=== PATIENT | male | born 1990 | race Caucasian/White ===

== ENCOUNTER 2018-03-09 11:30 | Inpatient (IN) ==
[2018-03-09] MEDS ORDERED: ONDANSETRON HCL/PF 2 MG/ML VIAL IV ONE (11:55)
[2018-03-09] MEDS ORDERED: NORMAL SALINE 1,000 ML IV ONE ×2 (11:55→15:06)
[2018-03-09] MEDS ORDERED: ONDANSETRON HCL/PF 2 MG/ML VIAL ONE (11:57)
--- NOTE | 2018-03-09 12:09 | ERNOTE ---
Medical Problem HPI - Narrative Date of Service: 03/09/18 - General Chief Complaint: Diabetes Related Problem Time Seen by Provider: 03/09/18 11:44 Source: patient Exam Limitations: no limitations - Immun/Allergies/Home Medications Immunizations: IMMUNIZATION HX Immunizations Up to Date Yes Allergies/Adverse Reactions: Allergies latex Allergy (Verified 03/09/18 14:42) Home Medications: HOME MEDICATIONS Insulin Aspart [Novolog] 17 units SC 1700 03/09/18 [Last Taken Unknown] Insulin Aspart [Novolog] 20 units SC 1200 03/09/18 [Last Taken Unknown] Insulin Aspart [Novolog] 28 units SC 0800 03/09/18 [Last Taken Unknown] Insulin Aspart [Novolog] See Protocol SC AC PRN 03/09/18 [Last Taken Unknown] Insulin Glargine,Hum.rec.anlog [Lantus] 24 units SC 2100 03/09/18 [Last Taken Unknown] Lisinopril [Zestril] 2.5 mg PO 0800 03/09/18 [Last Taken Unknown] Omeprazole 40 mg PO 0800 03/09/18 [Last Taken Unknown] Sertraline HCl 75 mg PO 0800 03/09/18 [Last Taken Unknown] traZODone HCL [Trazodone HCl] 50 mg PO HS PRN 03/09/18 [Last Taken Unknown] - History of Present History Narrative: Pt. comes in by PV with c/o nausea, vomiting, intermittent abd pain, and bg in the 400s this morning. Pt. denies any recent illness, fever, SOB, CP, diarrhea , alleviating or aggravating factors. Pt. states that his blood sugars were fine yesterday and he was feeling well. Pt. denies any prehospital treatment. Timing: getting worse Severity: moderate Modifying Factors - (Improves): Present: other - denies Modifying Factors - (Worsens): Present: other - denies Review of Systems - Review of Systems Constitutional: Present: diaphoresis, weakness, fatigue, malaise. Absent: fever , chills EYE: Present: no symptoms reported ENT: Present: no symptoms reported Respiratory: Present: no symptoms reported. Absent: shortness of breath, cough , wheezing Cardiology: Present: no symptoms reported. Absent: chest pain, palpitations, edema Gastrointestinal/Abdominal: Present: nausea, vomiting, abdominal pain - intermittent. Absent: diarrhea Genitourinary: Present: no symptoms reported. Absent: frequency, pain, dysuria , hematuria, decreased urinary output Musculoskeletal: Present: no symptoms reported. Absent: back pain, neck pain, joint pain Skin: Present: no symptoms reported Neurological: Present: no symptoms reported. Absent: headache, dizziness/light- headedness, numbness, tingling All Other Systems: All systems neg except as marked Medical History (Last Reviewed 03/09/18 @ 12:06 by ANA Edwards ) Asthma Mayes disease, bilateral DKA (diabetic ketoacidoses) Type 1 diabetes mellitus Surgical History: Surgical History (Last Updated 03/09/18 @ 14:38 by Lindy Sawyer RN) Leg fracture, left Leg fracture, right Family History: Family History (Last Updated 03/09/18 @ 14:41 by Lindy Sawyer RN) Mother Anemia Grandmother Hypertension Grandfather Dementia Sister Hyperthyroidism Diabetes Social History: Preferred Language Azeri Do you have any denominational or No cultural preference? Smoking Status Current every day smoker Alcohol Use none Drug Use none Physical Exam - Physical Exam General Appearance: Present: wd/wn, alert, no apparent distress Head Exam: Present: normal inspection, no evidence of injury, no tenderness w palpation Eye Exam: Normal inspection: bilateral Ears, Nose, Throat: Present: normal ENT inspection, normal pharynx. Absent: nasal congestion, sinus pain/drainage, pharyngeal erythema, pharyngeal swelling Neck: Present: normal inspection, nontender, supple, full range of motion. Absent: lymphadenopathy (R), lymphadenopathy (L) Respiratory: Present: no respiratory distress, normal breath sounds, no accessory muscle use, chest nontender, accessory muscle use. Absent: crackles, rales, rhonchi, wheezing Cardiovascular/Chest: Present: regular rate, rhythm, no murmur, normal peripheral pulses Gastrointestinal/Abdominal: Present: normal bowel sounds, nontender, nondistended, soft, no organomegaly Back Exam: Present: normal inspection Extremity Exam: Present: normal range of motion, other - erythema, edema, and warmth R hand 1 cm surrounding a 2mm puncture wound with dried purulent scabbed drainage. Neurological Exam: Present: alert, oriented, normal mood/affect, no motor/ sensory deficits, director of strategic initiatives II-XII nml as tested, normal cerebellar test Skin Exam: Present: warm/dry, pallor. Absent: skin rash ED Progress - Date and Time Seen: Date and Time: 03/09/18 12:[address] Harden and she accepts pt. for admission and request CXR and blood cultures - Vital Signs Patient's Vital Signs:: I have reviewed the patient's vital signs. Vital Signs: Vital Signs 03/09/18 11:34 Temperature 36.6 C Pulse Rate 95 Respiratory Rate 22 H Blood Pressure 119/68 O2 Sat by Pulse Oximetry 96 - X-Ray X-Ray #1 X-Ray: chest Interpretation: Reviewed by me X-ray Comments: no obvious acute CP process - Progress/Reassessment Chief Complaint: Diabetes Related Problem Progress:: Unchanged Departure Clinical Impression: DKA (diabetic ketoacidoses) Qualifiers: Diabetes mellitus type: type 1 Diabetes mellitus complication detail: without coma Qualified Code(s): E10.10 - Type 1 diabetes mellitus with ketoacidosis without coma - Departure Disposition: Still a patient Condition: Critical Critical Care Time - Critical Care Critical Time Spent:: Yes Total time (mins) Spent:: 45 Critical Care: Pt. critically ill DKA with severe acidosis and extremely elevated Blood sugar. Spent time with pt. stabilizing condition, consulting other providers and education of pt.
[2018-03-09 12:11] LABS: Hemoglobin 13.1 gm/dL (13.5-18.0); Mean Cell Volume 84.2 fl (78-100); Mean Corpuscular Hemoglobin 26.3 pg (27-31); Mean Corpuscular Hgb Conc 31.2 g/dl (32-36); Neutrophil # 9.9 K/mm3 (1.3-6.0); Neutrophil % 85.9 % (42-75.0); Platelet Count 207 K/mm3 (150-450); Red Blood Count 4.99 M/mm3 (4.7-6.0); Red Cell Distribution Width 14.7 % (11.5-14.0); White Blood Count 11.5 K/mm3 (4.0-10.5)
[2018-03-09 12:14] LABS: Venous Blood Gas HCO3 13.1 mmol/L (22.0-29.0)
[2018-03-09 12:19] LABS: Venous Blood Gas pH 7.15 (7.32-7.43)
[2018-03-09 12:25] LABS: ALT 31 U/L (19-67); AST 23 U/L (0-48); Albumin * 4.1 gm/dl (3.4-5.0); Alkaline Phosphatase * 161 U/L (50-170); Amylase * 26 U/L (25-115); Anion Gap 27.2 mmol/L (6.8-13.8); BUN/Creatinine Ratio 18.8 (9.0-21.6); Bilirubin, Total 0.7 mg/dL (0.0-1.1); Blood Urea Nitrogen 32 mg/dL (6-23); Ca. Corrected For Albumin 8.6 mg/dL (8.4-10.2); Carbon Dioxide 16.1 mmol/L (24-32.6); Chloride 90 mmol/L (97-106); Lipase 98 U/L (73-393); Potassium 5.3 mmol/L (3.4-4.6); Sodium 128 mmol/L (132-142); Total Protein 7.8 gm/dL (6.2-8.2)
[2018-03-09 12:29] LABS: Glucose * 673 mg/dL (70-110)
[2018-03-09] MEDS ORDERED: INSULIN REGULAR, HUMAN 100 UNITS/ML VIAL IV ONE (12:31)
[2018-03-09] MEDS ORDERED: INSULIN REGULAR, HUMAN 100 UNITS in NORMAL SALINE 100 ML IV PRN ×2 (12:31)
[2018-03-09 12:33] LABS: Hemoglobin A1C 10.2 % (4.00-6.0)
[2018-03-09] MEDS ORDERED: POTASSIUM CHLORIDE 20 MEQ in DEXTROSE 5%-0.5 NORMAL SALINE 990 ML IV SCH (12:45)
[2018-03-09] MEDS ORDERED: POTASSIUM CHLORIDE 10 MEQ in NORMAL SALINE 1,000 ML IV SCH (12:45)
[2018-03-09 13:01] LABS: Anion Gap 26.4 mmol/L (6.8-13.8); Carbon Dioxide 16.1 mmol/L (24-32.6); Potassium 5.5 mmol/L (3.4-4.6)
[2018-03-09 13:41] LABS: Urine Bilirubin Negative (NEGATIVE); Urine Blood 250 /ul (NEGATIVE); Urine Ketone Large mg/dL (NEGATIVE); Urine Nitrite Negative (NEGATIVE); Urine Protein Negative (NEGATIVE); Urine Specific Gravity 1.015 SP.GR. (1.005-1.030); Urine Urobilinogen Normal (NORMAL); Urine pH 5.5 pH (5.0-7.0)
[2018-03-09 13:46] LABS: Urine Appearance Slightly Cloudy (CLEAR); Urine Bacteria None Seen; Urine Color Yellow; Urine RBC 0-5 /hpf (0-5); Urine WBC None Seen /hpf (0-5)
[2018-03-09 14:58] LABS: Anion Gap 28.1 mmol/L (6.8-13.8); Carbon Dioxide 13.5 mmol/L (24-32.6); Potassium 4.6 mmol/L (3.4-4.6)
[2018-03-09] MEDS: NORMAL SALINE 1,000 ML IV PRN ×2 (16:10→23:07)
--- NOTE | 2018-03-09 16:49 | HP ---
Chief Complaint - Chief Complaint Date of Service: 03/09/18 Time of Service: 16:25 Chief Complaint: vomiting, dka History of Present Illness: Patient is cognitively impaired, and lives at a long-term in [place]. No other family members present at the time of my interview. He presented to the ED vomiting, and diaphoretic, and was found to be in DKA. He has a small skin wound on his right hand. He also reports having chronic diarrhea. He denies cough, chest pain, or shortness of breath. He states he has been in DKA previously. His DM is managed with lantus and novolog. Medical History (Last Reviewed 03/09/18 @ 12:06 by ANA Edwards ) Asthma Bartow disease, bilateral DKA (diabetic ketoacidoses) Type 1 diabetes mellitus Surgical History: Surgical History (Last Updated 03/09/18 @ 14:38 by Lindy Sawyer RN) Leg fracture, left Leg fracture, right Family History: Family History (Last Updated 03/09/18 @ 14:41 by Lindy Sawyer RN) Mother Anemia Grandmother Hypertension Grandfather Dementia Sister Hyperthyroidism Diabetes Social History: Patient Lives/Resources Insite Utilized Preferred Language Comoran Do you have any presybeterian or No cultural preference? Smoking Status Smoker, status unknown Have you smoked in the past 12 No months Do you dip or chew tobacco No Alcohol Use none Drug Use none Review Of Systems (GEN) - Review of Systems Generalized/Overall Review: Absent: Fever Respiratory: Absent: Cough, Shortness of Breath Cardiac: Absent: Chest Pain, Edema Abdominal: Present: Nausea, Vomiting, Diarrhea Genitourinary: Absent: Dysuria Skin: Present: Lesions Immunizations: IMMUNIZATION HX Immunizations Up to Date Yes Allergies/Adverse Reactions: Allergies Allergy/AdvReac Type Severity Reaction Status Date / Time latex Allergy Verified 03/09/18 14:42 Home Medications: HOME MEDICATIONS Insulin Aspart [Novolog] 17 units SC 1700 03/09/18 [Last Taken Unknown] Insulin Aspart [Novolog] 20 units SC 1200 03/09/18 [Last Taken Unknown] Insulin Aspart [Novolog] 28 units SC 0800 03/09/18 [Last Taken Unknown] Insulin Aspart [Novolog] See Protocol SC AC PRN 03/09/18 [Last Taken Unknown] Insulin Glargine,Hum.rec.anlog [Lantus] 24 units SC 2100 03/09/18 [Last Taken Unknown] Lisinopril [Zestril] 2.5 mg PO 0800 03/09/18 [Last Taken Unknown] Omeprazole 40 mg PO 0800 03/09/18 [Last Taken Unknown] Sertraline HCl 75 mg PO 0800 03/09/18 [Last Taken Unknown] traZODone HCL [Trazodone HCl] 50 mg PO HS PRN 03/09/18 [Last Taken Unknown] Exam - Exam Vital Signs: Vital Signs - Last Taken Temp 36.8 C 03/09/18 16:00 Pulse 94 03/09/18 16:00 Resp 16 03/09/18 16:00 BP 106/55 03/09/18 16:00 Pulse Ox 96 03/09/18 16:00 Constitutional: Present: Well nourished - Patient is somnolent, but answers questions seemingly appropriately, Young, Looks Older than stated age ENT Exam: Present: dry mucous membranes Respiratory: Present: normal breath sounds, no respiratory distress, No wheezing Cardiovascular/Chest: Present: regular rate, rhythm Abdomen: Present: soft, nontender Skin Exam: Present: other - Small 3 mm skin wound with 1.5 cm surrounding erythema. Healing 2 cm wound of left lower anterior leg. Large healed scars of bilateral lower legs. Eye contact: Present: avoids eye contact, decreased rate of speech Diagnostic Studies: Abnormal Lab Results 03/09/18 03/09/18 03/09/18 Range/Units 11:50 11:50 11:50 WBC 11.5 H (4.0-10.5) K/mm3 Hgb 13.1 L (13.5-18.0) gm/dL MCH 26.3 L (27-31) pg MCHC 31.2 L (32-36) g/dl RDW 14.7 H (11.5-14.0) % Neutrophils % 85.9 H (42-75.0) % Lymphocytes % 8.9 L (20-51) % Neutrophils # 9.9 H (1.3-6.0) K/mm3 Lymphocytes # 1.03 L (1.5-3.5) k/mm3 pO2 71.2 H (23.3-35.1) mmHg HCO3 13.1 L (22.0-29.0) mmol/L Total CO2 14.2 L (22.0-26.0) mmol/L Base Excess -14.9 L (-2.0-3.0) mmol/L ABG pH 7.15 L* (7.32-7.43) VBG O2 Saturation 89.5 L (94.0-98.0) % Sodium 128 L (132-142) mmol/L Potassium 5.3 H (3.4-4.6) mmol/L Chloride 90 L (97-106) mmol/L Carbon Dioxide 16.1 L (24-32.6) mmol/L Anion Gap 27.2 H (6.8-13.8) mmol/L BUN 32 H (6-23) mg/dL Creatinine 1.70 H (0.4-1.4) mg/dL Est GFR (Non-Af Amer) 51 L (60-130) mL/min Random Glucose 673 H* (70-110) mg/dL Hemoglobin A1c (4.00-6.0) % Urine Glucose (UA) (NEGATIVE) mg/dL Urine Blood (NEGATIVE) /ul Serum Ketones Positive - 40mg/dl H (NEGATIVE) 03/09/18 03/09/18 03/09/18 Range/Units 11:50 12:53 14:40 WBC (4.0-10.5) K/mm3 Hgb (13.5-18.0) gm/dL MCH (27-31) pg MCHC (32-36) g/dl RDW (11.5-14.0) % Neutrophils % (42-75.0) % Lymphocytes % (20-51) % Neutrophils # (1.3-6.0) K/mm3 Lymphocytes # (1.5-3.5) k/mm3 pO2 (23.3-35.1) mmHg HCO3 (22.0-29.0) mmol/L Total CO2 (22.0-26.0) mmol/L Base Excess (-2.0-3.0) mmol/L ABG pH (7.32-7.43) VBG O2 Saturation (94.0-98.0) % Sodium 130 L (132-142) mmol/L Potassium 5.5 H (3.4-4.6) mmol/L Chloride 93 L (97-106) mmol/L Carbon Dioxide 16.1 L 13.5 L (24-32.6) mmol/L Anion Gap 26.4 H 28.1 H (6.8-13.8) mmol/L BUN (6-23) mg/dL Creatinine (0.4-1.4) mg/dL Est GFR (Non-Af Amer) (60-130) mL/min Random Glucose (70-110) mg/dL Hemoglobin A1c 10.2 H (4.00-6.0) % Urine Glucose (UA) (NEGATIVE) mg/dL Urine Blood (NEGATIVE) /ul Serum Ketones (NEGATIVE) 03/09/18 Range/Units Unknown WBC (4.0-10.5) K/mm3 Hgb (13.5-18.0) gm/dL MCH (27-31) pg MCHC (32-36) g/dl RDW (11.5-14.0) % Neutrophils % (42-75.0) % Lymphocytes % (20-51) % Neutrophils # (1.3-6.0) K/mm3 Lymphocytes # (1.5-3.5) k/mm3 pO2 (23.3-35.1) mmHg HCO3 (22.0-29.0) mmol/L Total CO2 (22.0-26.0) mmol/L Base Excess (-2.0-3.0) mmol/L ABG pH (7.32-7.43) VBG O2 Saturation (94.0-98.0) % Sodium (132-142) mmol/L Potassium (3.4-4.6) mmol/L Chloride (97-106) mmol/L Carbon Dioxide (24-32.6) mmol/L Anion Gap (6.8-13.8) mmol/L BUN (6-23) mg/dL Creatinine (0.4-1.4) mg/dL Est GFR (Non-Af Amer) (60-130) mL/min Random Glucose (70-110) mg/dL Hemoglobin A1c (4.00-6.0) % Urine Glucose (UA) >=1000 H (NEGATIVE) mg/dL Urine Blood 250 H (NEGATIVE) /ul Serum Ketones (NEGATIVE) Laboratory Results WBC 11.5 K/mm3 (4.0-10.5) H 03/09/18 11:50 RBC 4.99 M/mm3 (4.7-6.0) 03/09/18 11:50 Hgb 13.1 gm/dL (13.5-18.0) L 03/09/18 11:50 Hct 42.0 % (42.0-52.0) 03/09/18 11:50 MCV 84.2 fl (78-100) 03/09/18 11:50 MCH 26.3 pg (27-31) L 03/09/18 11:50 MCHC 31.2 g/dl (32-36) L 03/09/18 11:50 RDW 14.7 % (11.5-14.0) H 03/09/18 11:50 Plt Count 207 K/mm3 (150-450) 03/09/18 11:50 MPV 11.0 fl (8-11.3) 03/09/18 11:50 Immature Gran % (Auto) 0.30 % (0.001-0.429) 03/09/18 11:50 Immature Gran # (Auto) 0.03 K/mm3 (0.000-0.0310) 03/09/18 11:50 Neutrophils % 85.9 % (42-75.0) H 03/09/18 11:50 Lymphocytes % 8.9 % (20-51) L 03/09/18 11:50 Monocytes % 4.3 % (0.0-9) 03/09/18 11:50 Eosinophils % 0.3 % (0.0-3.0) 03/09/18 11:50 Basophils % 0.3 % (0.0-1.0) 03/09/18 11:50 Nucleated RBC % 0.0 k/mm3 (0-1) 03/09/18 11:50 Neutrophils # 9.9 K/mm3 (1.3-6.0) H 03/09/18 11:50 Lymphocytes # 1.03 k/mm3 (1.5-3.5) L 03/09/18 11:50 Monocytes # 0.5 k/mm3 (0.0-1.0) 03/09/18 11:50 Eosinophils # 0.0 k/mm3 (0.0-0.7) 03/09/18 11:50 Absolute Basophils 0.0 k/mm3 (0.0-0.1) 03/09/18 11:50 pCO2 38.2 mmHg (35.0-48.0) 03/09/18 11:50 pO2 71.2 mmHg (23.3-35.1) H 03/09/18 11:50 HCO3 13.1 mmol/L (22.0-29.0) L 03/09/18 11:50 Total CO2 14.2 mmol/L (22.0-26.0) L 03/09/18 11:50 Base Excess -14.9 mmol/L (-2.0-3.0) L 03/09/18 11:50 ABG pH 7.15 (7.32-7.43) L* 03/09/18 11:50 VBG O2 Saturation 89.5 % (94.0-98.0) L 03/09/18 11:50 Sodium 136 mmol/L (132-142) 03/09/18 14:40 Plasma Sodium 137 mmol/L (130-142) 03/09/18 11:50 Potassium 4.6 mmol/L (3.4-4.6) 03/09/18 14:40 Chloride 99 mmol/L (97-106) 03/09/18 14:40 Carbon Dioxide 13.5 mmol/L (24-32.6) L 03/09/18 14:40 Anion Gap 28.1 mmol/L (6.8-13.8) H 03/09/18 14:40 BUN 32 mg/dL (6-23) H 03/09/18 11:50 Creatinine 1.70 mg/dL (0.4-1.4) H 03/09/18 11:50 Est GFR (Non-Af Amer) 51 mL/min (60-130) L 03/09/18 11:50 BUN/Creatinine Ratio 18.8 (9.0-21.6) 03/09/18 11:50 Random Glucose 673 mg/dL (70-110) H* 03/09/18 11:50 Mean Blood Glucose 254 mg/dL 03/09/18 11:50 Hemoglobin A1c 10.2 % (4.00-6.0) H 03/09/18 11:50 Calcium 9.0 mg/dL (7.9-10.9) 03/09/18 11:50 Calcium Adj for Albumin 8.6 mg/dL (8.4-10.2) 03/09/18 11:50 Total Bilirubin 0.7 mg/dL (0.0-1.1) 03/09/18 11:50 AST 23 U/L (0-48) 03/09/18 11:50 ALT 31 U/L (19-67) 03/09/18 11:50 Alkaline Phosphatase 161 U/L (50-170) 03/09/18 11:50 Total Protein 7.8 gm/dL (6.2-8.2) 03/09/18 11:50 Albumin 4.1 gm/dl (3.4-5.0) 03/09/18 11:50 Amylase 26 U/L (25-115) 03/09/18 11:50 Lipase 98 U/L (73-393) 03/09/18 11:50 Urine Color Yellow 03/09/18 Unknown Urine Appearance Slightly cloudy (CLEAR) 03/09/18 Unknown Urine pH 5.5 pH (5.0-7.0) 03/09/18 Unknown Ur Specific [place] 1.015 SP.GR. (1.005-1.030) 03/09/18 Unknown Urine Protein Negative mg/dL (NEGATIVE) 03/09/18 Unknown Urine Glucose (UA) >=1000 mg/dL (NEGATIVE) H 03/09/18 Unknown Urine Ketones Large mg/dL (NEGATIVE) 03/09/18 Unknown Urine Blood 250 /ul (NEGATIVE) H 03/09/18 Unknown Urine Nitrate Negative (NEGATIVE) 03/09/18 Unknown Urine Bilirubin Negative mg/dl (NEGATIVE) 03/09/18 Unknown Urine Urobilinogen Normal EU/dl (NORMAL) 03/09/18 Unknown Ur Leukocyte Esterase Negative /ul (NEGATIVE) 03/09/18 Unknown Urine RBC 0-5 /hpf (0-5) 03/09/18 Unknown Urine WBC None seen /hpf (0-5) 03/09/18 Unknown Ur Epithelial Cells Trace /hpf (0-5) 03/09/18 Unknown Urine Bacteria None seen (NONE) 03/09/18 Unknown Urine Culture Comments No culture indicated 03/09/18 Unknown Serum Ketones Positive - 40mg/dl (NEGATIVE) H 03/09/18 11:50 Assessment/Plan - Assessment/Plan (1) DKA (diabetic ketoacidoses) Assessment: Will continue insulin drip and aggressive fluid resuscitation until anion gap closes and CO2 normalizes. Will add D5 to fluids when glucose reaches 250. Will watch potassium levels, and add potassium to his fluids when his level is less than 4.5. If his sodium is greater than 145, will change to 1/2 NS. DKA may be secondary to the small wound on his hand, but not strongly likely. WBC not significantly elevated. Blood cultures pending. If not already done, will also check UA and urinalysis. CXR pending. He is cognitively impaired, and unable to provide detailed history. Problem: Acute Qualifiers: Diabetes mellitus type: type 1 Diabetes mellitus complication detail: without coma Qualified Code(s): E10.10 - Type 1 diabetes mellitus with ketoacidosis without coma (2) Wound of skin Assessment: Possible source of an infection leading to DKA, but the wound is fairly small. He was given Rocephin in the ED, and will continue daily Rocephin while hospitalized. Problem: Acute (3) Bartow disease, bilateral Problem: Acute (4) Cognitive dysfunction Problem: Acute
[2018-03-09] MEDS: DEXTROSE 5%-0.5 NORMAL SALINE 1,000 ML IV PRN (17:09)
[2018-03-09 17:13] LABS: Carbon Dioxide 15.7 mmol/L (24-32.6); Potassium 4.7 mmol/L (3.4-4.6)
[2018-03-09 18:54] LABS: Anion Gap 18.8 mmol/L (6.8-13.8); Carbon Dioxide 16.9 mmol/L (24-32.6); Potassium 4.7 mmol/L (3.4-4.6)
[2018-03-09 21:22] LABS: Anion Gap 13.3 mmol/L (6.8-13.8); Carbon Dioxide 20.2 mmol/L (24-32.6); Potassium 4.5 mmol/L (3.4-4.6)
[2018-03-09 23:27] LABS: Anion Gap 15.7 mmol/L (6.8-13.8); Carbon Dioxide 20.2 mmol/L (24-32.6); Potassium 3.9 mmol/L (3.4-4.6)
[2018-03-10] MEDS: POTASSIUM CHLORIDE IN WATER 100 ML IV SCH ×2 (00:31→01:32)
[2018-03-10] MEDS: DEXTROSE 5%-0.5 NORMAL SALINE 1,000 ML IV PRN ×2 (00:53→09:56)
[2018-03-10 00:55] LABS: Anion Gap 14.3 mmol/L (6.8-13.8); Carbon Dioxide 20.8 mmol/L (24-32.6); Potassium 4.1 mmol/L (3.4-4.6)
[2018-03-10 03:07] LABS: Potassium 4.4 mmol/L (3.4-4.6)
[2018-03-10 03:11] LABS: Anion Gap 13.3 mmol/L (6.8-13.8); Carbon Dioxide 24.1 mmol/L (24-32.6)
[2018-03-10] MEDS ORDERED: traZODone HCL 50 MG TABLET PO PRN (04:34)
[2018-03-10] MEDS ORDERED: INSULIN GLARGINE,HUM.REC.ANLOG 100 UNITS/ML VIAL SC SCH (04:34)
[2018-03-10 05:01] LABS: Potassium 4.1 mmol/L (3.4-4.6)
[2018-03-10 05:05] LABS: Anion Gap 13.4 mmol/L (6.8-13.8); Carbon Dioxide 23.7 mmol/L (24-32.6)
[2018-03-10] MEDS ORDERED: PANTOPRAZOLE SODIUM 40 MG TABLET.EC PO SCH (07:00)
[2018-03-10] MEDS ORDERED: OMEPRAZOLE 20 MG CAPSULE.SA PO SCH (07:00)
[2018-03-10] MEDS: INSULIN ASPART 100 UNITS/ML VIAL SC SCH ×2 (07:17→11:42)
[2018-03-10 07:36] LABS: Anion Gap 14.1 mmol/L (6.8-13.8); Potassium 4.1 mmol/L (3.4-4.6)
[2018-03-10] MEDS ORDERED: LISINOPRIL 2.5 MG TABLET PO SCH (08:00)
[2018-03-10] MEDS ORDERED: SULFAMETHOXAZOLE/TRIMETHOPRIM 1 TAB TABLET PO SCH (09:00)
[2018-03-10] MEDS ORDERED: SERTRALINE HCL 50 MG TABLET PO SCH (09:00)
[2018-03-10] MEDS: NORMAL SALINE 1,000 ML IV PRN (09:57)
[2018-03-10 10:04] LABS: Anion Gap 10.7 mmol/L (6.8-13.8); Carbon Dioxide 23.5 mmol/L (24-32.6); Potassium 4.2 mmol/L (3.4-4.6)
[2018-03-10] MEDS ORDERED: INSULIN ASPART 100 UNITS/ML VIAL SC SCH ×2 (12:00→17:00)
[2018-03-10 14:56] LABS: Carbon Dioxide 25.2 mmol/L (24-32.6); Potassium 4.2 mmol/L (3.4-4.6)
--- NOTE | 2018-03-10 16:37 | DS ---
(1) DKA (diabetic ketoacidoses) Problem: Acute Qualifiers: Diabetes mellitus type: type 1 Diabetes mellitus complication detail: without coma Qualified Code(s): E10.10 - Type 1 diabetes mellitus with ketoacidosis without coma (2) Wound of skin Problem: Acute (3) Mira disease, bilateral Problem: Chronic (4) Cognitive dysfunction Problem: Chronic Description of Stay: Patient presented to the ED vomiting and diaphoretic, and was found to be in DKA. He was started on an insulin drip and given fluids, and corrected overnight. He transitioned to his home lantus without difficulty. All history was obtained from Maximino, as family was not present. He denies possible sources of infection, other than a small wound on his hand, for which he was given a dose of Rocephin and 5 days of bactrim. The source for his DKA is likely to be insufficient insulin administration. Procedures Performed: none Results and Findings: Pending Mircobiology Results 03/09/18 14:55 Blood Blood Culture - Preliminary NO GROWTH 24 HOURS Lab Pending Results 03/09/18 11:50: WBC 11.5 H, RBC 4.99, Hgb 13.1 L, Hct 42.0, MCV 84.2, MCH 26.3 L , MCHC 31.2 L, RDW 14.7 H, Plt Count 207, MPV 11.0, Immature Gran % (Auto) 0.30 , Immature Gran # (Auto) 0.03, Neutrophils % 85.9 H, Lymphocytes % 8.9 L, Monocytes % 4.3, Eosinophils % 0.3, Basophils % 0.3, Nucleated RBC % 0.0, Neutrophils # 9.9 H, Lymphocytes # 1.03 L, Monocytes # 0.5, Eosinophils # 0.0, Absolute Basophils 0.0 03/09/18 11:50: pCO2 38.2, pO2 71.2 H, HCO3 13.1 L, Total CO2 14.2 L, Base Excess -14.9 L, ABG pH 7.15 L*, VBG O2 Saturation 89.5 L 03/09/18 11:50: Sodium 128 L, Plasma Sodium 137, Potassium 5.3 H, Chloride 90 L , Carbon Dioxide 16.1 L, Anion Gap 27.2 H, BUN 32 H, Creatinine 1.70 H, Est GFR (Non-Af Amer) 51 L, BUN/Creatinine Ratio 18.8, Random Glucose 673 H*, Calcium 9.0, Calcium Adj for Albumin 8.6, Total Bilirubin 0.7, AST 23, ALT 31, Alkaline Phosphatase 161, Total Protein 7.8, Albumin 4.1, Amylase 26, Lipase 98, Serum Ketones Positive - 40mg/dl H 03/09/18 11:50: Mean Blood Glucose 254, Hemoglobin A1c 10.2 H 03/09/18 12:53: Sodium 130 L, Potassium 5.5 H, Chloride 93 L, Carbon Dioxide 16.1 L, Anion Gap 26.4 H 03/09/18 14:40: Sodium 136, Potassium 4.6, Chloride 99, Carbon Dioxide 13.5 L, Anion Gap 28.1 H 03/09/18 16:45: Sodium 133, Potassium 4.7 H, Chloride 101, Carbon Dioxide 15.7 L , Anion Gap 21.0 H 03/09/18 18:45: Sodium 134, Potassium 4.7 H, Chloride 103, Carbon Dioxide 16.9 L , Anion Gap 18.8 H 03/09/18 21:04: Procalcitonin 0.31 03/09/18 21:07: Sodium 134, Potassium 4.5, Chloride 105, Carbon Dioxide 20.2 L, Anion Gap 13.3 03/09/18 23:10: Sodium 142, Potassium 3.9, Chloride 110 H, Carbon Dioxide 20.2 L , Anion Gap 15.7 H 03/09/18 : Urine Color Yellow, Urine Appearance Slightly cloudy, Urine pH 5.5, Ur Specific [place] 1.015, Urine Protein Negative, Urine Glucose (UA) >=1000 H, Urine Ketones Large, Urine Blood 250 H, Urine Nitrate Negative, Urine Bilirubin Negative, Urine Urobilinogen Normal, Ur Leukocyte Esterase Negative, Urine RBC 0 -5, Urine WBC None seen, Ur Epithelial Cells Trace, Urine Bacteria None seen, Urine Culture Comments No culture indicated 03/09/18 : ESR 30 H 03/10/18 00:45: Sodium 137, Potassium 4.1, Chloride 106, Carbon Dioxide 20.8 L, Anion Gap 14.3 H 03/10/18 02:55: Sodium 141, Potassium 4.4, Chloride 108 H, Carbon Dioxide 24.1, Anion Gap 13.3 03/10/18 04:45: Sodium 141, Potassium 4.1, Chloride 108 H, Carbon Dioxide 23.7 L , Anion Gap 13.4 03/10/18 07:19: Sodium 135, Potassium 4.1, Chloride 106, Carbon Dioxide 19.0 L, Anion Gap 14.1 H 03/10/18 10:00: Sodium 133, Potassium 4.2, Chloride 103, Carbon Dioxide 23.5 L, Anion Gap 10.7 03/10/18 14:46: Sodium 139, Potassium 4.2, Chloride 106, Carbon Dioxide 25.2, Anion Gap 12.0 Discharge Location: Other - [facility] Disposition: Home self-care Condition: Good Discharge Activity: Activity as tolerated Discharge Diet: Consistent carbs Additional Patient Instructions (free text): Please send a packet with D/C summary and orders with patient's mother for the staff at his long term. Complete Home Medications List: Complete Home Medication List: Insulin Aspart [Novolog] 17 units ID 1700 03/09/18 Insulin Aspart [Novolog] 20 units ID 1200 03/09/18 Insulin Aspart [Novolog] 28 units ID 0803/09/18 Insulin Aspart [Novolog] See Protocol ID AC PRN 03/09/18 Insulin Glargine,Hum.rec.anlog [Lantus] 24 units SC 2100 03/09/18 Lisinopril [Zestril] 2.5 mg PO 0800 03/09/18 Omeprazole 40 mg PO 0800 03/09/18 Sertraline HCl 75 mg PO 0800 03/09/18 traZODone HCL [Trazodone HCl] 50 mg PO HS PRN 03/09/18
[2018-03-10 17:41] VITALS: BP 123/74
== END 2018-03-10 17:40 | disposition home or self-care (01) | DRG 639 ==
LOC: ER 11:30 → SCU 12:58 → MS 03-10 11:39
PROVIDERS: ADMIT Family Medicine; ATTEND Family Medicine
CPT/HCPCS: 36415; 36416; 71010; 71045; 80051; 80053; 81001; 82009; 82150; 82803; 83036; 83690; 84145; 85025; 85652; 87040; 96361; 96365; 96367; 96375; 99291; J2405